=== PATIENT | male | born 1995 | race American Indian/Alaskan Native ===

== ENCOUNTER 2020-09-26 18:45 | Emergency (ER) | payer SELFPAY ==
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
[2020-09-26 19:32] VITALS: BP 118/69
== END 2020-09-26 19:38 | disposition home or self-care (01) ==
LOC: ED 18:45
DX: G40.909 Epilepsy, unspecified, not intractable, without status epilepticus (principal); F17.200 Nicotine dependence, unspecified, uncomplicated; Z76.0 Encounter for issue of repeat prescription; Z79.899 Other long term (current) drug therapy
CPT/HCPCS: 99282

== ENCOUNTER 2020-10-12 22:18 | Emergency (ER) | payer MEDICAID ==
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
[2020-10-13 00:57] VITALS: BP 115/63
== END 2020-10-13 01:00 | disposition home or self-care (01) ==
LOC: ED 22:18
DX: R56.9 Unspecified convulsions (principal); Z76.0 Encounter for issue of repeat prescription; F41.9 Anxiety disorder, unspecified; F17.200 Nicotine dependence, unspecified, uncomplicated; Z98.890 Other specified postprocedural states; Z79.899 Other long term (current) drug therapy
CPT/HCPCS: 99282

== ENCOUNTER 2020-11-12 00:03 | Emergency (ER) | payer SELFPAY ==
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
[2020-11-12 02:34] VITALS: BP 124/61
== END 2020-11-12 01:35 | disposition home or self-care (01) ==
LOC: ED 00:03
DX: G40.909 Epilepsy, unspecified, not intractable, without status epilepticus (principal); F41.9 Anxiety disorder, unspecified; F17.200 Nicotine dependence, unspecified, uncomplicated; Z98.890 Other specified postprocedural states; Z76.0 Encounter for issue of repeat prescription; Z79.899 Other long term (current) drug therapy
CPT/HCPCS: 99282